=== PATIENT | male | born 1970 | race Caucasian/White ===

== ENCOUNTER 2017-01-08 17:09 | Inpatient (IN) ==
[2017-01-08] MEDS ORDERED: ASPIRIN PO STA (17:12)
[2017-01-08] MEDS ORDERED: LOPRESSOR 10 MG in NS 50 ML IV ONE ×3 (17:18→17:31)
[2017-01-08 17:39] LABS: MANUAL DIFF NEEDED? NO
[2017-01-08 17:52] LABS: BASO% 0.4 % (0.0-0.8); EOS# 0.04 X1000 (0.0-0.7); EOS% 0.5 % (0.0-10.0); HEMATOCRIT 19.9 % (42.0-52.0); HEMOGLOBIN 6.7 g/dL (14.0-18.0); IMM GRAN# 0.01 X1000 (0.0-0.04); IMM GRAN% 0.1 % (0.0-0.5); LYMPH# 2.52 X1000 (1.2-3.4); LYMPH% 29.9 % (20.5-51.1); MCH 31.5 PG (27-31); MCHC 33.7 g/dL (33-37); MCV 93.4 FL (81-99); MONO% 7.1 % (1.7-9.3); PLT 156 X1000 (130-400); RBC 2.13 XMIL (4.7-6.1)
[2017-01-08 17:59] LABS: INR 0.91 (0.86-1.15)
[2017-01-08 18:00] LABS: PTT PL 30.3 Seconds (22.6-43.9)
[2017-01-08 18:01] LABS: AGAP 12; ALBUMIN 4.1 g/dL (3.5-5.0); ALKALINE PHOSPHATASE 102 U/L (32-122); BUN 10 mg/dL (8-22); CALCIUM 9.1 mg/dL (8.8-10.2); CHLORIDE 100 mmol/L (98-107); CK PROFILE 68 U/L (24-204); COSMO 273; GOT 15 U/L (10-34); GPT 11 U/L (10-44); MAGNESIUM 1.8 mg/dL (1.5-2.7); POTASSIUM 3.9 mmol/L (3.5-5.1); SODIUM 137 mmol/L (136-145); TCO2 25 mmol/L (25-35); TOTAL PROTEIN 8.3 g/dL (6.3-8.3)
[2017-01-08 18:22] LABS: OCCULT BLOOD 1 NEGATIVE (NEGATIVE)
[2017-01-08 19:04] LABS: IRON SATURATION 21 %; TIBC 264 ug/dL; TOTAL IRON 56 ug/dL (53-167); UNBOUND IRON 208 ug/dL (112-346)
[2017-01-08] MEDS ORDERED: LASIX IV ONE (19:21)
[2017-01-08] MEDS ORDERED: APRESOLINE PO PRN (20:25)
[2017-01-08] MEDS: TOPROL XL PO SCH (21:37)
[2017-01-08] MEDS ORDERED: NS 500 ML IV SCH (21:57)
[2017-01-09] MEDS ORDERED: TYLENOL PO PRN ×2 (04:02→09:22)
[2017-01-09] MEDS: TOPROL XL PO SCH ×2 (09:06→21:27)
[2017-01-09] MEDS: ROCEPHIN 1 GM in NS 50 ML IV SCH (11:18)
[2017-01-09] MEDS: ZOFRAN IV PRN ×2 (11:19→15:33)
[2017-01-09] MEDS: ZITHROMAX PO SCH (11:19)
[2017-01-09 11:21] LABS: HEMATOCRIT 44.2 % (42.0-52.0); HEMOGLOBIN 15.2 g/dL (14.0-18.0); MCH 30.5 PG (27-31); MCHC 34.4 g/dL (33-37); MCV 88.8 FL (81-99); MPV 9.7 FL (7.4-10.4); RBC 4.98 XMIL (4.7-6.1)
[2017-01-09] MEDS ORDERED: SODIUM CHLORIDE 0.9% INJ PRN ×2 (17:17→18:37)
[2017-01-09] MEDS ORDERED: LASIX IV ONE (17:19)
[2017-01-09] MEDS ORDERED: PHENERGAN IV PRN ×2 (17:22→18:37)
[2017-01-09] MEDS ORDERED: NEURONTIN PO SCH ×2 (21:00)
[2017-01-09] MEDS: PRINIVIL PO SCH (21:27)
[2017-01-10 06:46] LABS: HEMOGLOBIN 14.8 g/dL (14.0-18.0); MCH 30.9 PG (27-31); MCHC 33.6 g/dL (33-37); MCV 91.9 FL (81-99); MPV 10.3 FL (7.4-10.4); RBC 4.79 XMIL (4.7-6.1)
[2017-01-10 06:54] LABS: ALBUMIN 3.6 g/dL (3.5-5.0); CALCIUM 8.6 mg/dL (8.8-10.2); POTASSIUM 3.9 mmol/L (3.5-5.1); TOTAL BILIRUBIN 0.4 mg/dL (0.20-1.00); TOTAL PROTEIN 7.6 g/dL (6.3-8.3)
[2017-01-10] MEDS ORDERED: COREG PO SCH (09:00)
[2017-01-10] MEDS ORDERED: PRINIVIL PO SCH (09:00)
[2017-01-10] MEDS ORDERED: LASIX PO SCH ×2 (09:00)
[2017-01-10] MEDS ORDERED: ASPIRIN EC PO SCH ×2 (09:00)
[2017-01-10] MEDS ORDERED: NORVASC PO SCH (09:00)
[2017-01-10] MEDS: ROCEPHIN 1 GM in NS 50 ML IV SCH (09:29)
[2017-01-10] MEDS: TOPROL XL PO SCH ×2 (09:30→09:44)
[2017-01-10] MEDS: NORVASC PO SCH ×2 (09:30→09:45)
[2017-01-10] MEDS: ZITHROMAX PO SCH (09:30)
[2017-01-10] MEDS: COREG PO SCH ×2 (09:30→09:44)
[2017-01-10] MEDS: PRINIVIL PO SCH ×2 (09:30→09:43)
[2017-01-10 17:06] VITALS: BP 103/66
== END 2017-01-10 19:02 | disposition home or self-care (01) ==
LOC: P.ED 17:09 → P.MEDSURG 19:32
PROVIDERS: ADMIT Family Medicine; ATTEND Family Medicine